=== PATIENT | male | born 1990 | race African-American/Black ===

== ENCOUNTER 2017-11-14 11:04 | Emergency (ER) | payer OTHER, MEDICAID ==
[~2017-11-14] VITALS: Ht 182.9 cm; Wt 66.0 kg
[2017-11-14] MEDS ORDERED: SODIUM CHLORIDE 0.9% 1,000 ML IV ONE (11:35)
[2017-11-14] MEDS ORDERED: ONDANSETRON HCL 4MG/2ML VIAL IV STA (11:35)
[2017-11-14] MEDS ORDERED: FAMOTIDINE 20MG/2ML VIAL IV ONE (11:45)
[2017-11-14] MEDS ORDERED: MORPHINE SULFATE 4 MG/ML CPJ (NOT FOR IM USE) IV ONE (11:45)
[2017-11-14 11:55] LABS: HEMATOCRIT. 36.5 % (42.0-52.0); HEMOGLOBIN. 12.5 g/dL (14.0-18.0); MEAN CORPUSCULAR HEMOGLOBIN 22.8 pg (28.0-32.0); MEAN CORPUSCULAR VOLUME 66.4 fL (80.0-94.0); MEAN PLATELET VOLUME 8.7 fl (7.4-10.4); PLATELET 131 x1000/uL (130-400); RED BLOOD CELL COUNT 5.49 mill/uL (4.7-6.1); RED CELL DISTRIBUTION WIDTH 14.2 % (11.6-14.6)
[2017-11-14 12:02] LABS: CHLORIDE 97 mEq/L (98-107)
[2017-11-14 12:12] LABS: PLATELET ESTIMATE NORMAL
[2017-11-14 12:16] LABS: CLARITY URINE CLEAR (CLEAR); COLOR URINE YELLOW (YELLOW); KETONES URINE NEGATIVE (NEGATIVE); LEUKOCYTE ESTERASE URINE NEGATIVE (NEGATIVE); NITRITE URINE NEGATIVE (NEGATIVE); OCCULT BLOOD URINE NEGATIVE (NEGATIVE); PROTEIN URINE NEGATIVE (NEGATIVE); SPECIFIC GRAVITY URINE 1.018 (1.005-1.030)
[2017-11-14] MEDS ORDERED: VISCOUS LIDOCAINE 2% 15 ML UDC MM STA (17:37)
[2017-11-14] MEDS ORDERED: MAGNESIUM/ALUMINUM HYDROXIDE/SIMETHICONE 30ML UDC PO ONE (17:45)
[2017-11-14 18:03] VITALS: BP 116/71
== END 2017-11-14 18:53 | disposition home or self-care (01) ==
LOC: ER 11:04
DX: R10.9 Unspecified abdominal pain (principal); R11.10 Vomiting, unspecified; E87.8 Other disorders of electrolyte and fluid balance, not elsewhere classified; R16.1 Splenomegaly, not elsewhere classified
CPT/HCPCS: 36415; 71045; 74177; 76705; 80053; 81003; 83690; 84484; 85025; 93005; 96361; 96374; 96375; 99285; J2270; J2405; J3490; J7030; Z7610